=== PATIENT | male | born 1985 ===

== ENCOUNTER 2018-03-08 18:19 | Emergency (ER) | payer OTHER ==
[~2018-03-08] VITALS: Ht 185.4 cm; Wt 81.7 kg
[~2018-03-08 18:19] MED LIST: AMOCLA875 PO; CEPH500 PO; DIAZ5 PO; HYDACE5 PO; HYDACE7.5 PO; NAPR500 PO; PENVK500 PO; PROM25 PO; SULTRIDS PO
[2018-03-08 20:52] LABS: Influenza A Negative (NEGATIVE); Influenza B Negative (NEGATIVE)
== END 2018-03-08 21:05 | disposition home or self-care (01) ==
LOC: ER 18:19
PROVIDERS: Physician Assistant
DX: B34.9 Viral infection, unspecified (principal); F17.210 Nicotine dependence, cigarettes, uncomplicated
CPT/HCPCS: 71046; 87804; 99283-25